=== PATIENT | male | born 1960 | race Caucasian/White ===

== ENCOUNTER 2021-01-22 11:05 | Emergency (ER) | payer BC, SELFPAY ==
[2021-01-22 11:12] VITALS: BP 144/109; BP 158/92; PULSE 100; PULSE 90; RESP 18; TEMP 37.2; O2SAT 98; O2SAT 99; BMI 26.6
--- NOTE | 2021-01-22 11:28 | ED_ITS ---
HPI - Male Genitourinary General Chief complaint: Urogenital-Male Stated complaint: unable to void Time Seen by Provider: 01/22/21 11:14 Source: patient Mode of arrival: EMS Limitations: no limitations History of Present Illness HPI Narrative: 60-year-old male who presents emergency department for evaluation of dysuria, fever, chills, abdominal pain. The patient states that on Wednesday (5 days prior to evaluation) he developed dysuria. He states that he also had associated constipation. He states that his dysuria has gotten progressively worse. He has had urinary frequency and has only been able to put out small amounts of urine. He had fever and chills with a temperature as high as 102.6? at home. He states that prior to coming to the emergency department he took some magnesium citrate and did have a bowel movement and had some relief of the pressure sensation however the pressure has continued, it is constant and is 10/10. The patient has had urinary tract infections in the past and was started on Bactrim approximately 2 days prior by his PCP. Patient states he does have a history of prostate problems and has had maybe 3 urinary tract infections over the past 6 years. The patient has not seen his urologist in over 3 years. The patient is allergic to Avelox/fluoroquinolones, this caused a change in mental status and the patient had made him very hyperactive. Related Data Previous Rx's Medication Instructions Recorded tamsulosin [Flomax] 0.4 mg PO BEDTIME #30 cap 01/22/21 Allergies Allergy/AdvReac Type Severity Reaction Status Date / Time moxifloxacin [Avelox] Allergy Unknown Verified 08/25/19 00:00 Review of Systems Review of Systems: Yes all other systems are reviewed and are negative [facility] Past Medical History [facility] Narrative: Patient has history of diabetes mellitus, BPH, and arthritis. Past surgical history is significant for vasectomy in the past. The patient does smoke cigarettes. He states that he very rarely drinks alcohol. He denies drug use. Medical History (Updated 01/22/21 @ 12:56 by Roberto Bates MD) Arthritis Diabetes Surgical History (Updated 01/22/21 @ 11:19 by Dahlia Gonzalez) H/O: vasectomy Social History Social History Alcohol intake: never Smoking Status: Never smoker Use of substances other than those prescribed or required for medical reasons: No Any prior treatment program specific to substance use: No Advance Directives: No Advance Directives Information Provided: No Physical Exam Vital Signs: Vital Signs: Last Vital Signs Temp 99.0 F 01/22/21 11:12 Pulse 100 01/22/21 11:12 Resp 18 01/22/21 11:12 BP 158/92 H 01/22/21 11:12 Pulse Ox 98 01/22/21 11:12 Body Mass Index 26.6 Const: General: cooperative and healthy appearing Orientation/consciousness: oriented to person and oriented to place Limitations: no limitations HENMT: Head: Yes normal to inspection, Yes normocephalic and Yes atraumatic Ears: external ears normal General nose exam: Normal external nose present Face and sinus: Yes normal facial exam Mouth: Normal oral and palatal mucosa present Throat: Yes posterior oropharynx normal Eyes: Periorbital: periorbital findings normal Eyelids: Yes eyelids normal Conjunctivae: conjunctivae normal Sclerae: sclerae normal Corneas: corneas normal Pupils: Equal, round and reactive pupils present Direct Ophthalmoscopy: normal light reflex Neck: Neck: Yes full ROM, Yes no lymphadenopathy, Yes no meningeal signs, Yes trachea midline and Yes supple Chest: Chest palpation & inspection: normal inspection of the chest and normal palpation of entire chest wall Resp: Effort & Inspection: normal respiratory effort and able to speak in complete sentences Auscultation: clear to auscultation bilaterally Cardio: Rate: regular rate Rhythm: regular rhythm Heart sounds: S1 normal heart sound present, S2 normal heart sound present and no murmurs GI: Inspection: Yes normal to inspection Palpation (GI): Soft to palpation, Tenderness to palpation present (GI) suprapubicly (Moderate), no guarding, not rigid and No hepatosplenomegaly present : General: Yes no CVA tenderness Back/Spine/Pelvis: Back: no CVA tenderness Cervical Spine: normal cervical lordosis Thoracic/Lumbar Spine: thoracic and lumbar spine normal to inspection Skin: Lesions: no lesions Rashes: no rashes Wounds: no wounds Neuro: General: oriented to person, oriented to place and no meningeal signs Cranial nerves: Yes CN's II-XII intact bilaterally and Yes Equal, round and reactive pupils present Cognition (Neuro): normal cognition Motor exam (neuro): 5/5 motor strength present throughout Extrem: General: Yes normal to inspection and Yes full ROM Psych: Appearance: well kempt Mental Status: mental status grossly normal Speech and movement: Normal speech and movement present Affect: normal affect Attitude: cooperative Thought process: Normal thought process present Thought content: Normal thought content present Course Course Course Narrative: 60-year-old male who presents emergency department for evaluation of dysuria, urinary frequency, decreased urine output with lower abdominal pain which is gotten progressively worse over the past 24 hours. Vital signs revealed hypertension with a blood pressure of 158/92, slight elevation is temperature of 99? F. Physical examination did reveal suprapubic tenderness otherwise was unremarkable. Bladder scan revealed that the patient had over 800 mL of urine in his bladder. I did order a Tipton coude catheter to be placed by nursing staff. Also ordered a urinalysis on the patient. 1252: Patient's Tipton catheter was placed by the nurse, patient had 1200 cc of urine in the Tipton bag. The patient's urinalysis revealed 2+ blood, negative nitrates, negative leukocyte esterase. Microscopic revealed 10-14 RBCs 0 WBCs and no bacteria. My impression is that the patient most likely has prostatitis, his doctor prescribed Bactrim twice a day for 14 days and I advised the patient to stay on the Bactrim. Patient will also be started on Flomax. He is advised to contact his urologist for follow-up in 4-7 days to have the Tipton catheter removed. Patient will be started on Flomax 0.4 mg daily. MDM - Male Genitourinary Lab Data Labs: Lab Results 01/22/21 01/22/21 Range/Units 11:39 11:47 POC Glucose 283 H (60-115) mg/dL Urine Color YELLOW Urine Appearance CLEAR Urine pH 6.0 (5.0-8.0) Ur Specific Swain 1.025 (1.005-1.025) Urine Protein TRACE (NEG-TRACE) MG/DL Urine Glucose (UA) 500 H (NEG) MG/DL Urine Ketones >=80 (NEG) MG/DL Urine Blood 2+ H (NEG) Urine Nitrite NEG (NEG) Ur Leukocyte Esterase NEG (NEG) Urine RBC 10-14 H (0) /HPF Urine WBC 0 (0-4) /HPF Ur Squamous Epith Cells NONE /LPF Urine Bacteria NONE /LPF Hyaline Casts 0-2 /LPF Discharge Plan Discharge Clinical Impression: Acute urinary retention Patient Disposition: Home, Self-Care Instructions: Urinary Retention in Men (ED), Tipton Catheter Placement and Care (ED) Additional Instructions: Your urinalysis revealed blood in the urine only, the microscopic evaluation of the urine revealed small amount of blood, no white blood cells and no bacteria. I suspect that you have prostatitis is the cause of urinary retention. Keep taking the Bactrim as prescribed by your PCP for 14 days. Start Flomax 0.4 mg, 1 pill at night for 1 month. Call your PCP for referral to the urologist within 4-7 days to have the Tipton catheter removed. Follow-up with your doctor in 2 days. Please return to the emergency department if your symptoms get worse or if you develop any symptoms that are concerning to you. Prescriptions: New tamsulosin [Flomax] 0.4 mg capsule 0.4 mg PO BEDTIME Qty: 30 RF: 0 Referrals: Abdi Ferraro MD [Physician] - 1 week (Seen in the ED for dysuria, urinary retention, 1200 cc urine in bladder, Tipton catheter placed by nursing. Patient on Bactrim times [address] Mohan. Started on Flomax by me. Needs follow-up for urinary retention. PCP is Dr. Mohan)
[2021-01-22 11:52] LABS: Glucose, Whole Blood 283 mg/dL (60-115)
[2021-01-22 12:06] LABS: Glucose Urine UA 500 MG/DL (NEG); Leukocyte Esterase Urine NEG (NEG); Nitrite Urine NEG (NEG); Specific Gravity - Urine 1.025 (1.005-1.025); Urine Blood 2+ (NEG); Urine Ketones >=80 MG/DL (NEG); Urine Protein TRACE MG/DL (NEG-TRACE)
[2021-01-22 12:10] LABS: Appearance Urine CLEAR; Color Urine YELLOW
[2021-01-22 12:20] LABS: Hyaline Casts Urine 0-2 /LPF; WBC Urine 0 /HPF (0-4)
== END 2021-01-22 13:56 | disposition home or self-care (01) ==
PROVIDERS: Emergency Provider Emergency Medicine Emergency Medical Services; PCP Internal Medicine
DX: R33.9 Retention of urine, unspecified (principal); I10 Essential (primary) hypertension; E11.9 Type 2 diabetes mellitus without complications
CPT/HCPCS: 51702; 81001; 81003; 82947; 99284; 99285